=== PATIENT | female | born 1940 | race Caucasian/White ===

== ENCOUNTER 2017-11-01 08:16 | Day surgery (SDC) | payer OTHER ==
[2017-11-01 09:21] VITALS: TEMP 97.8
[2017-11-01] MEDS ORDERED: MOXIFLOXACIN 150 MCG/0.1 ML-BSS INJ (SURGERY) IO ONE (09:21)
[2017-11-01] MEDS ORDERED: LIDOCAINE 1%/PHENYLEPHRINE 1.5% BSS (SURGERY) INTRAOCULA ONE (09:21)
[2017-11-01] MEDS ORDERED: NIRAVAM ODT (SURGERY) PO PRN (09:21)
[2017-11-01] MEDS: AK-DILATE 10% OPTH SOL OP PRN ×3 (09:21→09:31)
[2017-11-01] MEDS ORDERED: ZOFRAN 4 MG/2 ML IVP ONE (09:21)
[2017-11-01] MEDS ORDERED: OMIDRIA 1-0.3% IN BSS BAG IR ONE (09:21)
[2017-11-01] MEDS ORDERED: BRIMONIDINE TARTRATE 0.2% OPTH SOL OP PRN (09:21)
[2017-11-01] MEDS: TETRACAINE 0.5% UNIT-DOSE OP PRN ×2 (09:21→10:24)
[2017-11-01] MEDS: BETADINE OPTH PREP OP PRN ×2 (09:21→10:24)
[2017-11-01] MEDS: CYCLOGYL 2% OPTH OP PRN ×3 (09:22→09:32)
[2017-11-01] MEDS ORDERED: DIPRIVAN 20 ML VIAL IVP ONE (10:30)
[2017-11-01] MEDS ORDERED: TORADOL ONE (10:30)
[2017-11-01] MEDS ORDERED: SUFENTA IVP ONE (10:30)
[2017-11-01] MEDS ORDERED: VERSED ONE (10:30)
[2017-11-01 13:33] VITALS: BP 112/62
== END 2017-11-01 11:20 | disposition home or self-care (01) ==
LOC: SURG 08:16
PROVIDERS: ATTEND Ophthalmology
DX: H25.12 Age-related nuclear cataract, left eye (principal)